=== PATIENT | male | born 1950 | race Caucasian/White ===

== ENCOUNTER → 2017-02-21 | Outpatient (CLI) | payer OTHER ==
[~2017-02-21] MED LIST: ASPI325T PO; BENA20 PO; BUPR75TA PO; CLOP75 PO; COMMODE 3:1; GEMF600T PO; HYDR-2768 PO; METF-324 PO; PRIM250 PO; THERM PO; WHEELCHAIR RENTAL; ZOCO40TA PO
[2017-02-21 08:05] LABS: ALKALINE PHOSPHATASE 91 U/L (45-117); ALT (GPT) 15 U/L (12-78); ANION GAP 8 MEQ/L (5-15); AST (GOT) 22 U/L (15-37); BLOOD UREA NITROGEN 18 MG/DL (7-18); CHLORIDE 107 MEQ/L (98-107); GLOMERULAR FILTRATION RATE 58 ML/MIN (>89); GLUCOSE,FASTING 136 MG/DL (74-99); HDL CHOLESTEROL 36.7 MG/DL (40.0-60.0); LDL CHOLESTEROL 124 MG/DL (0-99); SODIUM (NA) 139 MEQ/L (136-145); TOTAL BILIRUBIN ADULT 0.3 MG/DL (0.2-1.0)
[2017-02-21 08:06] LABS: POTASSIUM 4.6 MEQ/L (3.5-5.1)
[2017-02-21 16:01] LABS: HEMOGLOBIN A1b 2.7 %; HEMOGLOBIN Ao 79.7 %; HEMOGLOBIN LA1C 2.7 %; HEMOGLOBIN P3 8.2 %
== END ==
LOC: CLAB 06:54
PROVIDERS: ATTEND Family Medicine
DX: E11.9 Type 2 diabetes mellitus without complications (principal); E78.2 Mixed hyperlipidemia
CPT/HCPCS: 36415; 80053; 80061; 83036

== ENCOUNTER → 2018-03-27 | Outpatient (CLI) | payer MEDICARE ==
[2018-03-27 07:32] LABS: AUTOMATED NEUTROPHIL # 2.2 TH/MM3 (1.8-7.7); EOSINOPHIL # 0.2 TH/MM3 (0-0.4); EOSINOPHIL % 3.7 % (0.0-4.0); HEMATOCRIT 40.9 % (39.0-51.0); HEMOGLOBIN 13.8 GM/DL (13.0-17.0); LYMPH % 31.3 % (9.0-44.0); LYMPHOCYTE # 1.3 TH/MM3 (1.0-4.8); MEAN CELL VOLUME 90.6 FL (80.0-100.0); MEAN CORPUSCULAR HEMOGLOBIN 30.6 PG (27.0-34.0); MEAN CORPUSCULAR HGB CONC 33.8 % (32.0-36.0); MEAN PLATELET VOLUME 9.5 FL (7.0-11.0); MONO % 9.5 % (0.0-8.0); MONOCYTE # 0.4 TH/MM3 (0-0.9); NEUT % 54.5 % (16.0-70.0); PLATELET COUNT 209 TH/MM3 (150-450); RED BLOOD COUNT 4.51 MIL/MM3 (4.50-5.90); RED CELL DISTRIBUTION WIDTH 14.2 % (11.6-17.2); WHITE BLOOD COUNT 4.1 TH/MM3 (4.0-11.0)
[2018-03-27 07:54] LABS: ALT (GPT) 18 U/L (12-78); AST (GOT) 19 U/L (15-37); BICARBONATE 24.4 MEQ/L (21.0-32.0); BLOOD UREA NITROGEN 21 MG/DL (7-18); CALCIUM 8.9 MG/DL (8.5-10.1); CHLORIDE 105 MEQ/L (98-107); CHOLESTEROL 200 MG/DL (120-200); CREATININE 1.34 MG/DL (0.60-1.30); GLOMERULAR FILTRATION RATE 53 ML/MIN (>89); GLUCOSE,FASTING 151 MG/DL (74-99); SODIUM (NA) 138 MEQ/L (136-145)
[2018-03-27 07:57] LABS: ALKALINE PHOSPHATASE 80 U/L (45-117); FREE T4 0.81 NG/DL (0.76-1.46); HDL CHOLESTEROL 40.8 MG/DL (40.0-60.0); LDL CHOLESTEROL 136 MG/DL (0-99); TOTAL BILIRUBIN ADULT 0.2 MG/DL (0.2-1.0); TOTAL PROTEIN 7.7 GM/DL (6.4-8.2); TRIGLYCERIDES 118 MG/DL (42-150)
[2018-03-28 15:42] LABS: PHENOBARBITAL 22.8 mcg/mL (10.0 - 40.0); PRIMDONE 10.8 mcg/mL (5.0 - 12.0)
== END ==
LOC: CLAB 06:44
PROVIDERS: ATTEND Family Medicine
DX: E78.2 Mixed hyperlipidemia (principal); G93.3 Postviral and related fatigue syndromes; R53.1 Weakness; R53.81 Other malaise; R53.83 Other fatigue; I11.9 Hypertensive heart disease without heart failure; I63.441 Cerebral infarction due to embolism of right cerebellar artery; E11.9 Type 2 diabetes mellitus without complications; R79.89 Other specified abnormal findings of blood chemistry; M31.6 Other giant cell arteritis; F41.1 Generalized anxiety disorder; Z51.81 Encounter for therapeutic drug level monitoring; Z68.32 Body mass index [BMI] 32.0-32.9, adult; Z91.81 History of falling
CPT/HCPCS: 36415; 80053; 80061; 80184; 80188; 84439; 84443; 85025